=== PATIENT | male | born 1975 | race Caucasian/White ===

== ENCOUNTER 2021-02-16 10:24 | Emergency (ER) | payer OTHER ==
[~2021-02-16] VITALS: Ht 175.3 cm; Wt 70.3 kg
[2021-02-16 10:32] VITALS: BP 120/67
--- NOTE | 2021-02-16 10:50 | NUR ---
DR. WINTERS AT BEDSIDE FOR EVAL.
[2021-02-16] MEDS ORDERED: LIDOCAINE HCL/MPF 1% 30 ML VIAL IJ ONE (10:55)
[2021-02-16] MEDS ORDERED: TDAP [DIPH/PERTUSSIS/TET] 0.5 ML VIAL IM ONE ×2 (10:57→11:00)
[2021-02-16] MEDS ORDERED: AMOX-430 PO (11:14)
--- NOTE | 2021-02-16 12:41 | NUR ---
Patient a/ox4, suture repaired by Dr. Edwards. Covered with dry dressing. Patient discharged to home in stable condition. Written and verbal after care instructions given. Patient verbalizes understanding of instruction.
== END 2021-02-16 12:42 | disposition home or self-care (01) ==
LOC: ER 10:29
DX: S60.311A Abrasion of right thumb, initial encounter (principal); S61.432A Puncture wound without foreign body of left hand, initial encounter; W54.0XXA Bitten by dog, initial encounter; Y93.89 Activity, other specified; Y92.89 Other specified places as the place of occurrence of the external cause; Y99.8 Other external cause status
CPT/HCPCS: 73130; 90471; 90715; 99283; A6403; J3490

== ENCOUNTER 2021-02-18 16:18 | Emergency (ER) | payer OTHER ==
[~2021-02-18] VITALS: Ht 175.3 cm; Wt 70.3 kg
[~2021-02-18 16:18] MED LIST: AMOX-430 PO
[2021-02-18 16:25] VITALS: BP 117/66
[2021-02-18] MEDS ORDERED: CEFTRIAXONE 1GM BAG (ER ONLY) 50 ML IV ONE (17:16)
[2021-02-18] MEDS ORDERED: METRONIDAZOLE 500MG/ NS 100ML 100 ML IV ONE (17:16)
[2021-02-18] MEDS ORDERED: CEFTRIAXONE 1GM BAG (ER ONLY) 1 GM/50 ML PIGGYBACK IV ONE (17:30)
[2021-02-18] MEDS ORDERED: FLAGYL/NS RTU 500 MG/100 ML PIGGYBACK IV ONE (17:30)
[2021-02-18] MEDS ORDERED: METR500T PO (18:05)
--- NOTE | 2021-02-18 19:15 | NUR ---
The patient alert and oriented X4. Denies SOB. Respiration regular and unlabored. Denies pain. Patient discharged to home in stable condition. Written and verbal after care instructions given. Patient verbalizes understanding of instruction. The patient left ER in stable condition.
== END 2021-02-18 19:20 | disposition home or self-care (01) ==
LOC: ER 16:24
DX: S61.432A Puncture wound without foreign body of left hand, initial encounter (principal); L03.114 Cellulitis of left upper limb; Z79.899 Other long term (current) drug therapy; W54.0XXA Bitten by dog, initial encounter; Y93.89 Activity, other specified; Y92.89 Other specified places as the place of occurrence of the external cause; Y99.8 Other external cause status
CPT/HCPCS: 96365; 96367; 99284; J0696

== ENCOUNTER 2021-02-19 16:32 | Emergency (ER) | payer OTHER ==
[~2021-02-19] VITALS: Ht 175.3 cm; Wt 70.3 kg
[~2021-02-19 16:32] MED LIST changes: +METR500T PO
[2021-02-19 16:38] VITALS: BP 119/68
== END 2021-02-19 17:35 | disposition home or self-care (01) ==
LOC: ER 17:08
DX: S61.432D Puncture wound without foreign body of left hand, subsequent encounter (principal); Z60.2 Problems related to living alone; Z79.899 Other long term (current) drug therapy; W54.0XXD Bitten by dog, subsequent encounter